=== PATIENT | male | born 1990 | race African-American/Black ===

== ENCOUNTER 2021-11-14 16:49 | Inpatient (IN) | payer SELFPAY ==
[~2021-11-14 16:49] MED LIST: Iopamidol-370 76% 500 ML 1 ML ONE
[2021-11-14 17:50] LABS: #Eosinphils 0.1 thou/uL (0.0-0.7); #Lymphocytes 1.4 thou/uL (1.20-3.40); #Monocytes 0.9 thou/uL (0.11-0.59); #Neutrophils 10.5 thou/uL (1.40-6.50); %Basophils 0.1 % (0.0-1.0); %Eosinophils 0.7 % (0.0-10.0); %Neutrophils 81.2 % (42.0-75.0); Hemoglobin 11.9 g/dL (14.0-18.0); Mean Corpuscular HGB CONC 32.7 g/dL (32.0-36.0); Mean Corpuscular Hemoglobin 28.4 pg (27.0-31.0); Mean Corpuscular Volume 86.7 fL (78.0-98.0); Mean Platelet Volume 8.1 fL (7.4-10.4); Platelet Count 360 thou/uL (130-400); RBC Distribution Width 13.4 % (11.5-14.5)
[2021-11-14 18:09] LABS: ALT (SGPT) 69 U/L (8-55); AST (SGOT) 26 U/L (5-34); Albumin 3.7 g/dL (3.5-5.0); Alkaline Phosphatase 77 U/L (40-110); Anion Gap 16 mmol/L (10-20); BUN (Urea Nitrogen) 11 mg/dL (8.9-20.6); Bilirubin, Total 0.6 mg/dL (0.2-1.2); Calc. Creatinine Clearance 0 mL/min (70-130); Carbon Dioxide 21 mmol/L (22-29); Chloride 106 mmol/L (98-107); Globulin 3.4 g/dL (2.4-3.5); Glucose 127 mg/dL (70-105); Potassium 3.9 mmol/L (3.5-5.1); Protein, Total 7.1 g/dL (6.0-8.3); Sodium 139 mmol/L (136-145)
[2021-11-14] MEDS ORDERED: Aspirin Chewable 81 MG TAB ONE (18:22)
[2021-11-14 18:51] LABS: CK (CPK) 82 U/L (30-200); Lipase 18 U/L (8-78)
[2021-11-14 21:40] LABS: Troponin I Less than 0.010 ng/mL (< 0.028)
[2021-11-14 23:35] VITALS: BMI 33.7
[2021-11-14] MEDS ORDERED: Ketorolac Tromethamine 30 MG/ML VIAL IVP SCH (23:45)
[2021-11-14] MEDS ORDERED: Ondansetron PF 4 MG/2 ML Vial IVP PRN (23:46)
[2021-11-14] MEDS ORDERED: Acetaminophen 325 MG TAB PO PRN (23:46)
[2021-11-15] MEDS ORDERED: carBAMazepine 200 MG TAB PO SCH (00:15)
[2021-11-15] MEDS ORDERED: hydrALAZINE 25 MG TAB PO SCH (00:15)
[2021-11-15] MEDS ORDERED: Colchicine 0.6 MG TAB PO SCH (00:15)
[2021-11-15] MEDS ORDERED: Famotidine 20 MG TAB PO SCH (00:15)
[2021-11-15 00:42] LABS: Troponin I Less than 0.010 ng/mL (< 0.028)
[2021-11-15] MEDS: Colchicine 0.3 MG TAB PO SCH (00:47)
[2021-11-15] MEDS: Famotidine 20 MG TAB PO SCH ×3 (00:47→20:35)
[2021-11-15] MEDS: carBAMazepine 200 MG TAB PO SCH ×3 (00:47→20:33)
[2021-11-15 08:38] LABS: #Eosinphils 0.1 thou/uL (0.0-0.7); #Lymphocytes 1.4 thou/uL (1.20-3.40); #Monocytes 0.9 thou/uL (0.11-0.59); #Neutrophils 11.8 thou/uL (1.40-6.50); %Basophils 0.2 % (0.0-1.0); %Eosinophils 0.7 % (0.0-10.0); %Lymphocytes 9.8 % (21.0-51.0); %Monocytes 6.5 % (0.0-10.0); %Neutrophils 82.8 % (42.0-75.0); Hemoglobin 11.7 g/dL (14.0-18.0); Mean Corpuscular HGB CONC 33.1 g/dL (32.0-36.0); Mean Corpuscular Hemoglobin 28.3 pg (27.0-31.0); Mean Corpuscular Volume 85.5 fL (78.0-98.0); Platelet Count 377 thou/uL (130-400); RBC Distribution Width 13.6 % (11.5-14.5); Red Blood Cell (RBC) Count 4.14 mill/uL (4.70-6.10); White Blood Cell (WBC) Count 14.2 thou/uL (4.8-10.8)
[2021-11-15] MEDS ORDERED: Ketorolac Tromethamine 30 MG/ML VIAL IVP PRN (08:41)
[2021-11-15 08:57] LABS: Anion Gap 14 mmol/L (10-20); BUN (Urea Nitrogen) 13 mg/dL (8.9-20.6); Calc. Creatinine Clearance 178 mL/min (70-130); Calcium 8.9 mg/dL (7.8-10.44); Carbon Dioxide 24 mmol/L (22-29); Chloride 105 mmol/L (98-107); Glucose 102 mg/dL (70-105); Potassium 3.7 mmol/L (3.5-5.1); Sodium 139 mmol/L (136-145)
[2021-11-15] MEDS: hydrALAZINE 25 MG TAB PO SCH ×2 (09:26→15:36)
[2021-11-15] MEDS: Colchicine 0.6 MG TAB PO SCH ×2 (09:29→20:34)
[2021-11-15 13:29] LABS: SARS-CoV-2 PCR by NAA Not Detected (NotDetected)
[2021-11-15] MEDS: Metoprolol Tartrate 50 MG TAB PO SCH (20:34)
[2021-11-15] MEDS: Indomethacin 75 mg SR Capsule PO SCH (20:34)
[2021-11-16 05:24] LABS: #Eosinphils 0.2 thou/uL (0.0-0.7); #Lymphocytes 2.9 thou/uL (1.20-3.40); #Monocytes 1.1 thou/uL (0.11-0.59); #Neutrophils 9.8 thou/uL (1.40-6.50); %Basophils 0.1 % (0.0-1.0); %Eosinophils 1.1 % (0.0-10.0); %Lymphocytes 20.7 % (21.0-51.0); %Neutrophils 70.1 % (42.0-75.0); Mean Corpuscular HGB CONC 32.9 g/dL (32.0-36.0); Mean Corpuscular Hemoglobin 28.5 pg (27.0-31.0); Mean Corpuscular Volume 86.5 fL (78.0-98.0); Platelet Count 420 thou/uL (130-400); Red Blood Cell (RBC) Count 4.22 mill/uL (4.70-6.10)
[2021-11-16 05:52] LABS: Anion Gap 14 mmol/L (10-20); BUN (Urea Nitrogen) 15 mg/dL (8.9-20.6); Calc. Creatinine Clearance 132 mL/min (70-130); Carbon Dioxide 28 mmol/L (22-29); Chloride 103 mmol/L (98-107); Glucose 108 mg/dL (70-105); Potassium 3.9 mmol/L (3.5-5.1); Sodium 141 mmol/L (136-145)
[2021-11-16] MEDS: carBAMazepine 200 MG TAB PO SCH ×2 (09:27→20:50)
[2021-11-16] MEDS: Colchicine 0.6 MG TAB PO SCH ×2 (09:28→20:51)
[2021-11-16] MEDS: Famotidine 20 MG TAB PO SCH ×2 (09:28→20:53)
[2021-11-16] MEDS: Metoprolol Tartrate 50 MG TAB PO SCH ×2 (09:28→20:52)
[2021-11-16] MEDS: Indomethacin 75 mg SR Capsule PO SCH ×2 (09:29→20:50)
[2021-11-16] MEDS: Lisinopril 10 MG TAB PO SCH (20:51)
[2021-11-17 04:43] LABS: #Eosinphils 0.2 thou/uL (0.0-0.7); #Lymphocytes 2.2 thou/uL (1.20-3.40); #Monocytes 0.9 thou/uL (0.11-0.59); #Neutrophils 9.2 thou/uL (1.40-6.50); %Basophils 0.1 % (0.0-1.0); %Eosinophils 1.6 % (0.0-10.0); %Lymphocytes 17.2 % (21.0-51.0); %Monocytes 7.3 % (0.0-10.0); %Neutrophils 73.8 % (42.0-75.0); Hemoglobin 12.2 g/dL (14.0-18.0); Mean Corpuscular HGB CONC 31.9 g/dL (32.0-36.0); Mean Corpuscular Hemoglobin 27.6 pg (27.0-31.0); Mean Corpuscular Volume 86.5 fL (78.0-98.0); Platelet Count 412 thou/uL (130-400); Red Blood Cell (RBC) Count 4.42 mill/uL (4.70-6.10); White Blood Cell (WBC) Count 12.5 thou/uL (4.8-10.8)
[2021-11-17 04:55] LABS: Anion Gap 15 mmol/L (10-20); BUN (Urea Nitrogen) 16 mg/dL (8.9-20.6); Calc. Creatinine Clearance 160 mL/min (70-130); Calcium 8.9 mg/dL (7.8-10.44); Carbon Dioxide 23 mmol/L (22-29); Chloride 106 mmol/L (98-107); Glucose 98 mg/dL (70-105); Potassium 3.9 mmol/L (3.5-5.1); Sodium 140 mmol/L (136-145)
[2021-11-17] MEDS: Lisinopril 10 MG TAB PO SCH (09:57)
[2021-11-17] MEDS: Famotidine 20 MG TAB PO SCH (09:57)
[2021-11-17] MEDS: Colchicine 0.6 MG TAB PO SCH (09:57)
[2021-11-17] MEDS: carBAMazepine 200 MG TAB PO SCH (09:57)
[2021-11-17] MEDS: Indomethacin 75 mg SR Capsule PO SCH (09:58)
[2021-11-17] MEDS: Metoprolol Tartrate 50 MG TAB PO SCH (09:59)
[2021-11-17] MEDS ORDERED: Lisinopril 10 MG TAB PO SCH (14:30)
[2021-11-17 14:39] VITALS: BP 169/102
[2021-11-17 16:03] VITALS: TEMP 98.3
[2021-11-17] MEDS ORDERED: Lisinopril 20 MG TAB PO SCH (21:00)
[2021-11-18 12:22] LABS: ANA Symphony (Qualitative) Negative (Negative); ANA Symphony (Quantitative) 0.2 Ratio (< 0.7 Negative); dsDNA IgG Antibody 0.7 IU/mL (<10 Negative)
== END 2021-11-17 16:00 | disposition home or self-care (01) | DRG 315 ==
LOC: ERS 16:49 → 2NO 20:46
PROVIDERS: ADMIT Internal Medicine; ATTEND Emergency Medicine
DX: I31.9 Disease of pericardium, unspecified (principal); J90 Pleural effusion, not elsewhere classified; G50.0 Trigeminal neuralgia; I31.3 Pericardial effusion (noninflammatory); F12.90 Cannabis use, unspecified, uncomplicated; F17.210 Nicotine dependence, cigarettes, uncomplicated; I25.2 Old myocardial infarction; I11.0 Hypertensive heart disease with heart failure; N62 Hypertrophy of breast; I50.9 Heart failure, unspecified; Z20.822 Contact with and (suspected) exposure to COVID-19; Z86.711 Personal history of pulmonary embolism; Z79.899 Other long term (current) drug therapy; Z82.49 Family history of ischemic heart disease and other diseases of the circulatory system; Z72.89 Other problems related to lifestyle
CPT/HCPCS: 36415; 71045; 71275; 80048; 80053; 82550; 83690; 83880; 84443; 84484; 85025; 85379; 85652; 86038; 86140; 86225; 93005; 93306; J1885; Q9967; U0003; U0005

== ENCOUNTER 2022-04-10 00:08 | Emergency (ER) | payer SELFPAY ==
[2022-04-10 00:32] LABS: #Basophils 0.1 thou/uL (0.0-0.2); #Eosinphils 0.3 thou/uL (0.0-0.7); #Lymphocytes 3.2 thou/uL (1.20-3.40); #Monocytes 0.5 thou/uL (0.11-0.59); #Neutrophils 6.4 thou/uL (1.40-6.50); %Basophils 0.5 % (0.0-1.0); %Eosinophils 3.1 % (0.0-10.0); %Lymphocytes 30.6 % (21.0-51.0); %Neutrophils 60.9 % (42.0-75.0); Hemoglobin 15.2 g/dL (14.0-18.0); Mean Corpuscular HGB CONC 33.5 g/dL (32.0-36.0); Mean Corpuscular Hemoglobin 27.8 pg (27.0-31.0); Mean Corpuscular Volume 83.1 fL (78.0-98.0); Mean Platelet Volume 10.7 fL (7.4-10.4); Platelet Count 188 thou/uL (130-400); Red Blood Cell (RBC) Count 5.46 mill/uL (4.70-6.10); White Blood Cell (WBC) Count 10.5 thou/uL (4.8-10.8)
[2022-04-10 00:52] LABS: ALT (SGPT) 13 U/L (8-55); AST (SGOT) 16 U/L (5-34); Albumin 4.3 g/dL (3.5-5.0); Alkaline Phosphatase 62 U/L (40-110); Anion Gap 12 mmol/L (10-20); BUN (Urea Nitrogen) 11 mg/dL (8.9-20.6); Bilirubin, Total 0.3 mg/dL (0.2-1.2); Calc. Creatinine Clearance 0 mL/min (70-130); Calcium 9.6 mg/dL (7.8-10.44); Carbon Dioxide 24 mmol/L (22-29); Chloride 107 mmol/L (98-107); Estimated GFR 83; Globulin 3.2 g/dL (2.4-3.5); Glucose 110 mg/dL (70-105); Lipase 32 U/L (8-78); Potassium 3.9 mmol/L (3.5-5.1); Protein, Total 7.5 g/dL (6.0-8.3); Sodium 139 mmol/L (136-145)
[2022-04-10] MEDS ORDERED: Ondansetron PF 4 MG/2 ML Vial ONE (01:29)
[2022-04-10] MEDS ORDERED: Morphine 4 MG/ML VIAL ONE (01:29)
[2022-04-10] MEDS ORDERED: Iopamidol-370 76% 500 ML 1 ML ONE (11:22)
== END 2022-04-10 03:17 | disposition home or self-care (01) ==
LOC: ERS 00:08
DX: R10.31 Right lower quadrant pain (principal); R10.13 Epigastric pain; I10 Essential (primary) hypertension; F17.210 Nicotine dependence, cigarettes, uncomplicated; Z79.899 Other long term (current) drug therapy
CPT/HCPCS: 36415; 74177; 80053; 83690; 84484; 85025; 93005; 96374; 96375; J2270; J2405; Q9967

== ENCOUNTER 2022-12-13 10:31 | Emergency (ER) | payer SELFPAY | END 2022-12-13 12:00 | disposition home or self-care (01) | LOC: ERS 10:31 | DX: M79.671 Pain in right foot (principal); G89.29 Other chronic pain; F17.290 Nicotine dependence, other tobacco product, uncomplicated | CPT/HCPCS: 99283 ==

== ENCOUNTER 2024-01-03 19:17 | Emergency (ER) | payer SELFPAY | END 2024-01-03 20:32 | disposition home or self-care (01) | LOC: ERS 19:17 | DX: M94.0 Chondrocostal junction syndrome [Tietze] (principal); I10 Essential (primary) hypertension; E11.9 Type 2 diabetes mellitus without complications | CPT/HCPCS: 71046; 93005 ==

== ENCOUNTER 2024-06-03 21:29 | Emergency (ER) | payer SELFPAY | END 2024-06-03 23:29 | disposition home or self-care (01) | LOC: ERS 21:29 | DX: J02.9 Acute pharyngitis, unspecified (principal); I10 Essential (primary) hypertension; F17.290 Nicotine dependence, other tobacco product, uncomplicated | CPT/HCPCS: 87081; 87428; 87430; 99282 ==

== ENCOUNTER 2024-08-24 18:07 | Emergency (ER) | payer SELFPAY ==
[2024-08-24 19:00] LABS: #Basophils 0.04 10x3/uL (0.0-0.2); %Basophils 0.5 % (0.0-1.0); %Eosinophils 3.7 % (0.0-10.0); %Monocytes 5.3 % (0.0-10.0); %Neutrophils 65.3 % (42.0-75.0); Hematocrit 46.5 % (42.0-52.0); Hemoglobin 14.9 g/dL (14.0-18.0); Mean Corpuscular Hemoglobin 27.6 pg (27.0-31.0); Mean Corpuscular Volume 86.1 fL (78.0-98.0); Mean Platelet Volume 11.5 fL (7.4-10.4); Platelet Count 229 10x3/uL (130-400); RBC Distribution Width 13.7 % (11.5-14.5)
[2024-08-24 19:27] LABS: Troponin I Less than 0.010 ng/mL (< 0.028)
[2024-08-24 19:31] LABS: ALT (SGPT) 17 U/L (Less than 45); AST (SGOT) 18 U/L (11-34); Alkaline Phosphatase 54 U/L (40-110); Anion Gap 13 mmol/L (10-20); BUN (Urea Nitrogen) 17 mg/dL (8.9-20.6); Bilirubin, Total 0.7 mg/dL (0.3-1.2); Calc. Creatinine Clearance 0 mL/min (70-130); Calcium 9.6 mg/dL (7.8-10.44); Carbon Dioxide 23 mmol/L (22-29); Chloride 106 mmol/L (98-107); Estimated GFR 88; Globulin 3.1 g/dL (2.4-3.5); Glucose 103 mg/dL (70-105); Potassium 3.9 mmol/L (3.5-5.1); Protein, Total 7.1 g/dL (6.0-8.3); Sodium 138 mmol/L (136-145)
[2024-08-24 21:07] LABS: Troponin I Less than 0.010 ng/mL (< 0.028)
== END 2024-08-24 21:39 | disposition home or self-care (01) ==
LOC: ERS 18:07
DX: R07.9 Chest pain, unspecified (principal); I10 Essential (primary) hypertension; F17.290 Nicotine dependence, other tobacco product, uncomplicated; F17.210 Nicotine dependence, cigarettes, uncomplicated
CPT/HCPCS: 36415; 71045; 80053; 84484; 85025; 93005; 94760

== ENCOUNTER 2024-08-25 17:01 | Emergency (ER) | payer SELFPAY ==
[2024-08-25 19:37] LABS: #Basophils 0.05 10x3/uL (0.0-0.2); %Basophils 0.6 % (0.0-1.0); %Eosinophils 2.2 % (0.0-10.0); %Lymphocytes 23.4 % (21.0-51.0); %Monocytes 4.6 % (0.0-10.0); Hematocrit 47.5 % (42.0-52.0); Hemoglobin 15.2 g/dL (14.0-18.0); Mean Corpuscular Hemoglobin 28.3 pg (27.0-31.0); Mean Corpuscular Volume 88.3 fL (78.0-98.0); Mean Platelet Volume 11.4 fL (7.4-10.4); Platelet Count 220 10x3/uL (130-400); RBC Distribution Width 13.6 % (11.5-14.5); Red Blood Cell (RBC) Count 5.38 mill/uL (4.70-6.10)
[2024-08-25 19:59] LABS: ALT (SGPT) 19 U/L (Less than 45); AST (SGOT) 20 U/L (11-34); Albumin 4.4 g/dL (3.1-4.5); Alkaline Phosphatase 58 U/L (40-110); Anion Gap 15 mmol/L (10-20); BUN (Urea Nitrogen) 15 mg/dL (8.9-20.6); Bilirubin, Total 0.7 mg/dL (0.3-1.2); Calc. Creatinine Clearance 0 mL/min (70-130); Calcium 9.9 mg/dL (7.8-10.44); Carbon Dioxide 20 mmol/L (22-29); Chloride 106 mmol/L (98-107); Estimated GFR 93; Globulin 3.1 g/dL (2.4-3.5); Glucose 103 mg/dL (70-105); Potassium 4.1 mmol/L (3.5-5.1); Protein, Total 7.5 g/dL (6.0-8.3); Sodium 137 mmol/L (136-145)
[2024-08-25 20:00] LABS: Lipase 33 U/L (8-78)
[2024-08-25 20:01] LABS: Troponin I Less than 0.010 ng/mL (< 0.028)
== END 2024-08-25 21:41 | disposition home or self-care (01) ==
LOC: ERS 17:01
DX: R07.89 Other chest pain (principal); I10 Essential (primary) hypertension; E11.9 Type 2 diabetes mellitus without complications; Z87.891 Personal history of nicotine dependence; Z79.899 Other long term (current) drug therapy
CPT/HCPCS: 36415; 71045; 80053; 83690; 83735; 83880; 84443; 84484; 85025; 85379; 93005